=== PATIENT | female | born 1990 | race Caucasian/White ===

== ENCOUNTER 2018-07-31 02:59 | Inpatient (IN) | payer MEDICAID ==
[2018-07-31] MEDS ORDERED: Oxytocin 10 Units/1 ML SDV ONE (03:09)
[2018-07-31] MEDS ORDERED: Ampicillin 2 GM AdvVial IV ONE (03:12)
[2018-07-31] MEDS ORDERED: Lactated Ringers 1,000 ML ONE (03:13)
[2018-07-31] MEDS ORDERED: Nalbuphine 20 MG/ML 1 ML Syringe IVPUSH PRN (03:17)
[2018-07-31] MEDS ORDERED: Sodium Chloride 0.9% 10 ML Syringe FLUSH PRN (03:17)
[2018-07-31] MEDS ORDERED: Lidocaine 1% 50 ML MDV INJECT ONE (03:17)
[2018-07-31] MEDS ORDERED: Lactated Ringers 1,000 ML IV SCH (03:30)
[2018-07-31] MEDS ORDERED: Ampicillin 2 GM in Sodium Chloride 0.9% 100 ML IV ONE (03:30)
[2018-07-31] MEDS ORDERED: Oxytocin/Lactated Ringers 10 UNIT/1,000 ML BAG IV SCH (03:30)
--- NOTE | 2018-07-31 04:16 | PCM.LDHP ---
L&D History of Present Illness - General Date of Service: 07/31/18 Admit Problem/Dx: Patient Status Order with Admit Dx/Problem 07/31/18 03:18 Patient Status [ADT] Routine Admission Diagnosis/Problem Admission Diagnosis/Problem 07/31/18 04:10 Katerina is a 28-year-old 3 now para 3003 white female who arrived in labor and delivery early in the morning of 07/31/2018 in active labor and, with complete cervical dilation. She proceeded to deliver within the course of a half an hour. She she delivered a viable, galaviz, female infant with Apgars of 8 and 9, a length of 20.0 inches and a weight of 3450 g (7 lbs. 10 oz.). Patient passing through for [place], [place] to [place], [place] and was staying the night in [place]. She went into labor at approximately 0100 hrs. on 07/31/2018. Membranes are still intact upon arrival and only a minimal amount of fluid was noted when they were ruptured at the time of delivery. course: care provided by Dr. Garza in [facility]. She's had regular care from the beginning. 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 Ultrasound goes along with her MACEY being 08/08/2018. Drug screen at the end was negative. Laboratory testing: Drug screen negative, group B strep positive, RPR negative, rubella titer shows immunity. GC and chlamydia assays both negative. One-hour glucose tolerance test was normal. course showed normal interval growth. Baby in vertex presentation. Past medical history: 1. Vaginal delivery 2children now ages 5 and 1-1/2. Past surgical history: Unremarkable Family history: Mother and father are alive and well. She has 5 brothers and 3 sisters who are alive and healthy with the exception of one brother who is had heart surgery for congenital heart defect in the bowel. Grandparents history noncontributory. No anesthesia, bleeding, blood clotting problems noted. Katerina lives in [facility]. She does not use any significant loss of alcohol, drugs or tobacco. 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 Review of systems: In general patient has no complaints except for frequent recurring labor pains. Baby has been active. Skin: Negative Lungs: No infectious symptoms or shortness of breath Cardiovascular: No chest pain or exercise intolerance GI: Negative : Negative Musculoskeletal: Negative Neurological: Negative In general the patient is well-developed, well-nourished, pleasant female of stated age in in active labor. Contractions occurring every 3 minutes. Skin is warm dry without lesions. HEENT, neck and back within normal limits. Lungs per nursing evaluation are clear with good breath sounds in all lung saldana. Cardiovascular exam per nursing evaluation shows regular and rhythm without murmurs. Abdomen is gravid, fundal height consistent with dates, baby in vertex presentation. Genital exam shows cervix to be completely dilated. head on first evaluation is at the 0 station. Bag qureshi intact and is ruptured and reveals pink tinged fluid in small amount. Extremities and neurological exam are grossly within normal limits. - Related Data Allergies/Adverse Reactions: Allergies Allergy/AdvReac Type Severity Reaction Status Date / Time No Known Allergies Allergy Verified 07/31/18 03:19 Home Medications: Home Meds Vits #93/Iron Fum/FA [ Formula Tablet] 07/31/18 [History] H&P Review of Systems - Review of Systems: Review Of Systems: See Below L&D Exam - Exam Exam: See Below - Vital Signs Vital Signs: Last Vital Signs Temp 36.3 C 07/31/18 03:16 Pulse 84 07/31/18 03:16 Resp 16 07/31/18 03:16 BP 115/72 07/31/18 03:16 Pulse Ox Weight: 91.172 kg - Patient Data Lab Results Last 24 hrs: Laboratory Results - last 24 hr 07/31/18 Range/Units 03:27 WBC 11.46 H (3.98-10.04) K/mm3 RBC 4.45 (3.98-5.22) M/mm3 Hgb 13.1 (11.2-15.7) gm/L Hct 37.6 (34.1-44.9) % MCV 84.5 (79.4-94.8) fl MCH 29.4 (25.6-32.2) pg MCHC 34.8 (32.2-35.5) g/dl RDW Std Deviation 42.8 (36.4-46.3) fL Plt Count 168 L (182-369) K/mm3 MPV 10.7 (9.4-12.3) fl Neut % (Auto) 74.1 H (34.0-71.1) % Lymph % (Auto) 17.5 L (19.3-51.7) % [place] % (Auto) 7.5 (4.7-12.5) % Eos % (Auto) 0.6 L (0.7-5.8) Baso % (Auto) 0.1 (0.1-1.2) % Neut # (Auto) 8.50 H (1.56-6.13) K/mm3 Lymph # (Auto) 2.00 (1.18-3.74) K/mm3 [place] # (Auto) 0.86 H (0.24-0.36) K/mm3 Eos # (Auto) 0.07 (0.04-0.36) K/mm3 Baso # (Auto) 0.01 (0.01-0.08) K/mm3 Manual Slide Review Not Reportable Result Diagrams: 07/31/18 03:27 Problem List Initiated/Reviewed/Updated: Yes Orders Last 24hrs: Active Orders 24 hr Category Date Time Status Patient Status [ADT] Routine ADT 07/31/18 03:18 Active Activity as Tolerated [RC] PFP Care 07/31/18 03:17 Active Communication Order [RC] ASDIRECTED Care 07/31/18 03:17 Active Heart Tones [RC] ASDIRECTED Care 07/31/18 03:19 Active Non Stress Test [RC] PER UNIT ROUTINE Care 07/31/18 03:17 Active Notify Provider [RC] PFP Care 07/31/18 03:17 Active Notify Provider [RC] PRN Care 07/31/18 03:17 Active Peripheral IV Care [RC] . DIRECTED Care 07/31/18 03:19 Active Vital Signs [RC] PER UNIT ROUTINE Care 07/31/18 03:17 Active RAPID PLASMA REAGIN,RPR [CHEM] Routine Lab 07/31/18 03:17 Ordered TYPE AND SCREEN [BBK] Stat Lab 07/31/18 03:27 Received Ampicillin 1 gm Med 07/31/18 07:30 Active Sodium Chloride 0.9% [Normal Saline] 100 ml IV Q4H Lactated Ringers [Ringers, Lactated] 1,000 ml Med 07/31/18 03:30 Active IV ASDIRECTED Nalbuphine [Nubain] Med 07/31/18 03:17 Active 10 mg IVPUSH Q2H PRN Oxytocin/Lactated Ringers [Pitocin in LR 10 Units/1,000 Med 07/31/18 03:30 Active ML] 10 unit in 1,000 ml IV .CONTINUOUS Sodium Chloride 0.9% [Saline Flush] Med 07/31/18 03:17 Active 10 ml FLUSH ASDIRECTED PRN Electronic Heart Tones Ext w TOCO [WOMSER] Ot 07/31/18 03:17 Ordered Routine Electronic Heart Tones Internal [WOMSER] Per Unit Ot 07/31/18 03:17 Ordered Routine Peripheral IV Insertion Adult [OM.PC] Routine Oth 07/31/18 03:17 Ordered Resuscitation Status Routine Resus Stat 07/31/18 03:17 Ordered Medication Orders Ampicillin Sodium 1 gm/ Sodium (Chloride) 100 mls @ 200 mls/hr IV Q4H SHAUN Lactated Ringer's (Ringers, Lactated) 1,000 mls @ 100 mls/hr IV ASDIRECTED SHAUN Oxytocin/Lactated Ringer's (Pitocin In Lr 10 Units/1,000 Ml) 10 unit in 1,000 mls @ 500 mls/hr IV .CONTINUOUS SHAUN Last Admin: 07/31/18 03:56 Dose: 500 mls/hr Nalbuphine HCl (Nubain) 10 mg IVPUSH Q2H PRN PRN Reason: pain Sodium Chloride (Saline Flush) 10 ml FLUSH ASDIRECTED PRN PRN Reason: Keep Vein Open Assessment/Plan Comment:: 1. Term intrauterine at 38+ weeks gestational age in active labor with complete cervical dilation upon arrival in the hospital resulting in a precipitous delivery. History and physical done before delivery but dictated after delivery. 2. Group B strep status positive-patient did receive 1 dose of antibiotics IV consistent of ampicillin. 3.Rubella immune 4. Patient received her T-dap during the course of her 5. Patient plans to breast-feed 6. Patient was desiring natural labor as she has done her last 2 pregnancies Plan: 1. Routine care. 2. Obtain from [facility] for details 3. RPR when possible 4. Support breast-feed decision
--- NOTE | 2018-07-31 04:24 | PCM.SN ---
- Free Text/Narrative Note: Delivery note: Katerina is a 28-year-old 3 now para 3003 white female at 38+ weeks gestational age an MACEY of 08/08/2018 who arrived in labor and delivery in active labor and. Be dilated with baby at 0 station. She proceeded to deliver a viable , galaviz, female at 0355 hrs. on or 23/10/2018. She had received 1 g of ampicillin per protocol prior to delivery for her diagnosis of group B strep positive status. Baby delivered in left occiput anterior position, weight 3450 g (7 lbs. 10 oz.). Apgars were 8 and 9 and length was 20.0 inches. 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 Pitocin was started via IV to facilitate increase in uterine tone and decreased likelihood of bleeding. Baby was placed on mom's abdomen and cord was allowed to pulsate for 1-2 minutes. It was then clamped 2 and cut by the baby's father Alex. Cord blood was obtained. Placenta delivered at 0358 hrs. in a Meyer presentation, appeared intact and complete and was discarded per patient desire. The perineum was intact and no suturing was required. Estimated blood loss 100 mL. Condition: Good
[2018-07-31] MEDS ORDERED: Benzocaine/Menthol 20%-0.5% Spray 56 GM Canister TOP PRN (05:14)
[2018-07-31] MEDS ORDERED: Ibuprofen 600 MG Tab PO PRN (05:14)
[2018-07-31] MEDS ORDERED: Witch Hazel Medicated Pads 40/Jar TOP PRN (05:14)
[2018-07-31] MEDS ORDERED: Lanolin 100% Cream 7 GM Tube TOP PRN (05:14)
[2018-07-31] MEDS ORDERED: Acetaminophen 325 MG Tab PO PRN (05:14)
[2018-07-31] MEDS ORDERED: Docusate Sodium 100 MG Cap PO PRN (05:14)
[2018-07-31] MEDS ORDERED: Ampicillin 1 GM in Sodium Chloride 0.9% 100 ML IV SCH (07:30)
--- NOTE | 2018-07-31 10:45 | PCM.SN ---
- Free Text/Narrative Note: note: Day of delivery Patient is doing well in the period. Minimal lochia, voiding well, ambulated without problems. Nursing without concerns. Patient is afebrile, vital signs are stable Abdomen is flat, soft, uterus is below the umbilicus and is firm and nontender. Legs are nontender. Assessment: recovery going well. Plan: Routine care. Patient be discharged home within the next 24-48 hours.
--- NOTE | 2018-08-01 10:07 | PCM.SN ---
- Free Text/Narrative Note: note: day 1 Patient is doing well in the period. Minimal lochia, voiding well, ambulated without problems. Nursing without concerns. Group B strep was positive and patient only received 1 dose of antibiotic prior to delivery. Patient is afebrile, vital signs are stable Abdomen is flat, soft, uterus is below the umbilicus and is firm and nontender. Legs are nontender. Assessment: recovery going well. Plan: Routine care. Patient be discharged home today. If baby is to stay for another 24 hours we'll cancel discharge orders.
--- NOTE | 2018-08-01 10:13 | PCM.DCSUM1 ---
Discharge Summary - Hospital Course Free Text/Narrative:: Katerina is a 28-year-old 3 now para 3003 white female at 38+ weeks gestational age an MACEY of 08/08/2018 who arrived in labor and delivery in active labor and. She was found to be completely dilated with baby at 0 station. She proceeded to deliver a viable, galaviz, female at 0355 hrs. on or 2018. She had received 2 gms of ampicillin per protocol prior to delivery for her diagnosis of group B strep positive status. Baby delivered in left occiput anterior position, weight 3450 g (7 lbs. 10 oz.). Apgars were 8 and 9 and length was 20.0 inches. 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 Pitocin was started via IV to facilitate increase in uterine tone and decreased likelihood of bleeding. Baby was placed on mom's abdomen and cord was allowed to pulsate for 1-2 minutes. It was then clamped 2 and cut by the baby's father Alex. Cord blood was obtained. Placenta delivered at 0358 hrs. in a Meyer presentation, appeared intact and complete and was discarded per patient desire. The perineum was intact and no suturing was required. Estimated blood loss 100 mL. patient has done very well. She is nursing without problems. Baby has done well. He is voiding well and has minimal lochia. She is desiring discharge as soon as possible. Condition: Good Diagnosis: Stroke: No - Discharge Data Discharge Date: 08/01/18 Discharge Disposition: Home, Self-Care 01 Condition: Good - Patient Instructions Diet: Regular Diet as Tolerated (Nursing diet with increased calories and calcium as directed.) Activity: As Tolerated (No intercourse or tampons until bleeding resolves) Driving: May Drive Today Showering/Bathing: May Shower (May take a bath) Notify Provider of: Fever, Increased Pain, Swelling and Redness, Nausea and/or Vomiting - Discharge Plan Home Medications: Home Meds Vits #93/Iron Fum/FA [ Formula Tablet] 07/31/18 [History] Acetaminophen [Tylenol] 650 mg PO Q4H PRN tablet 08/01/18 [Rx] Ibuprofen [Motrin] 600 mg PO Q4H PRN tablet 08/01/18 [Rx] Referrals: Rivera Mills MD [Primary Care Provider] - ([place] - Discharge Summary/Plan Comment DC Time >30 min.: No Discharge Summary/Plan Comment: Discharge instructions: 1. Discharge home 2. Diet, activity and follow-up discussed with patient. Recommend nursing diet with increased calories and calcium. 3. Precautions given concern increased pain, bleeding, temperature, signs/ symptoms of DVT/PE. 4. Medications per home medication was printed, discussed with and given to the patient. 5. Return to clinic-Dr. Garza, her primary care sap bw developer in [place], [place] in 2 weeks. Diagnosis: Term -delivered Condition: Good - Patient Data Vitals - Most Recent: Last Vital Signs Temp 36.6 C 08/01/18 03:00 Pulse 79 08/01/18 03:00 Resp 16 08/01/18 03:00 BP 123/88 08/01/18 03:00 Pulse Ox 98 08/01/18 03:00 Weight - Most Recent: 91.172 kg Med Orders - Current: Current Medications Acetaminophen (Tylenol) 650 mg PO Q4H PRN PRN Reason: mild pain or fever Last Admin: 07/31/18 09:38 Dose: 650 mg Benzocaine/Menthol (Dermoplast Pain Relief [place]) 0 gm TOP ASDIRECTED PRN PRN Reason: Perineal Comfort Measure Last Admin: 07/31/18 05:55 Dose: 1 spray Docusate Sodium (Colace) 100 mg PO BID PRN PRN Reason: Constipation Emollient Ointment (Lansinoh Hpa) 0 gm TOP ASDIRECTED PRN PRN Reason: Sore Nipples Last Admin: 08/01/18 09:45 Dose: 1 tube Ibuprofen (Motrin) 600 mg PO Q4H PRN PRN Reason: Mild pain or fever Last Admin: 07/31/18 15:15 Dose: 600 mg Witch Zuleika (Tucks) 1 pad TOP ASDIRECTED PRN PRN Reason: Pain Last Admin: 07/31/18 05:55 Dose: 1 applic Discontinued Medications Ampicillin Sodium (Ampicillin) Confirm Administered Dose 2 gm IV .STK-MED ONE Stop: 07/31/18 03:13 Last Admin: 07/31/18 03:20 Dose: Not Given Lactated Ringer's (Ringers, Lactated) Confirm Administered Dose 1,000 mls @ as directed .ROUTE .STK-MED ONE Stop: 07/31/18 03:14 Last Admin: 07/31/18 03:20 Dose: Not Given Ampicillin Sodium 2 gm/ Sodium (Chloride) 100 mls @ 200 mls/hr IV ONETIME ONE Stop: 07/31/18 03:59 Last Admin: 07/31/18 03:10 Dose: 200 mls/hr Ampicillin Sodium 1 gm/ Sodium (Chloride) 100 mls @ 200 mls/hr IV Q4H SHAUN Lactated Ringer's (Ringers, Lactated) 1,000 mls @ 100 mls/hr IV ASDIRECTED SHAUN Oxytocin/Lactated Ringer's (Pitocin In Lr 10 Units/1,000 Ml) 10 unit in 1,000 mls @ 500 mls/hr IV .CONTINUOUS SHAUN Last Admin: 07/31/18 03:56 Dose: 500 mls/hr Lidocaine HCl (Xylocaine 1%) 50 ml INJECT ONETIME ONE Stop: 07/31/18 03:18 Last Admin: 07/31/18 05:11 Dose: Not Given Nalbuphine HCl (Nubain) 10 mg IVPUSH Q2H PRN PRN Reason: pain Oxytocin (Pitocin) Confirm Administered Dose 10 unit .ROUTE .STK-MED ONE Stop: 07/31/18 03:10 Last Admin: 07/31/18 03:20 Dose: Not Given Sodium Chloride (Saline Flush) 10 ml FLUSH ASDIRECTED PRN PRN Reason: Keep Vein Open
== END 2018-08-02 10:10 | disposition home or self-care (01) | DRG 807 ==
LOC: JD.OB 02:59 → JD.OBCHECK 02:59 → JD.OB 03:18 → OBSVTOIN 03:55 → JD.MS 03:55 → JD.OB 16:06
PROVIDERS: ADMIT Obstetrics & Gynecology; ATTEND Obstetrics & Gynecology
PROC: 6A550ZT Pheresis of Cord Blood Stem Cells, Single (ICD-10-PCS; principal; 2018-07-31)
PROC: 10E0XZZ Delivery of Products of Conception, External Approach (ICD-10-PCS; principal; 2018-07-31)
DX: O99.824 Streptococcus B carrier state complicating childbirth (principal); Z37.0 Single live birth; O66.3 Obstructed labor due to other abnormalities of fetus; O62.3 Precipitate labor; Z3A.38 38 weeks gestation of pregnancy
CPT/HCPCS: 36415; 59025; 59409; 85025; 86850; 86900; 86901; A9270-GY; J0290; J2590; J7030